=== PATIENT | male | born 1980 | race Caucasian/White ===

== ENCOUNTER → 2021-06-05 11:23 | Outpatient (BNVA) | payer MEDICAID, SELFPAY | PROVIDERS: Visit Provider Psychiatry & Neurology Psychiatry | DX: F25.9 Schizoaffective disorder, unspecified (principal) | CPT/HCPCS: 90792 ==

== ENCOUNTER 2021-06-13 17:29 | Inpatient (IN) | payer MEDICAID, SELFPAY ==
[2021-06-13 17:43] VITALS: BP 120/73; PULSE 115; RESP 20; TEMP 36.8; O2SAT 97; BMI 28.5
[2021-06-13 17:54] VITALS: O2SAT 96
--- NOTE | 2021-06-13 18:28 | ED_ITS ---
HPI - Psych General: Chief Complaint: Psychiatric Symptoms Stated Complaint: MHE: HEARING VOICES, OUT OF MEDS Time Seen by Provider: 06/13/21 18:09 History of Present Illness: HPI Narrative: This patient is brought to the emergency department by his [id number]. He states that he is here because he needs a mental health evaluation. This is also collaborated by his [id number]. She adds that he lives with them and she has been noting that he has been acting little bizarre lately talking to himself and other unusual behavior. She is concerned that he might act out and cause issues at home and therefore she has brought him to the emergency department. He has a longstanding history of mental illness and was previously treated in [place] and was doing well and then moved to [facility] and also continued to do well and then relocated here to live with his brother and [id number]. Not had any of his usual medications for at least 2 months. There is no history of alcohol consumption, street drug use etc. No recent medical illnesses, exposure to infectious disease etc. No recent trauma. No thoughts of self-harm. Associated symptoms: Reports auditory hallucinations; Deny homicidal ideation or suicidal ideation Review of Systems Const: Denies: fever(s) or chills Eyes: Denies: change in vision ENMT: Denies: throat pain, mouth pain or dental pain Card: Denies: chest pain or palpitations Resp: Denies: dyspnea or productive cough GI: Denies: abdominal pain, nausea or vomiting : Denies: flank pain, difficulty urinating or dysuria Musc: Denies: neck pain, back pain or extremity pain Skin/Breast: Denies: rash Neuro: Denies: headache(s), numbness in extremities, weakness in extremities, sensory changes or lack of coordination Psych: Reports: mood swings, sleeping less, difficulty concentrating and auditory hallucinations; Denies: suicidal ideation or homicidal ideation Endo: Denies: polyuria or polydipsia PFSH ED PFSH: Medical History Schizoaffective disorder Physical Exam Const: COMMON NORMALS: no acute distress and average body habitus GENERAL APPEARANCE: cooperative and well kempt HENMT: COMMON NORMALS: normocephalic, atraumatic, external ears normal, Normal external nose present and moist oral mucous membranes HEAD & SCALP: norm ocephalic and atraumatic NOSE: Normal external nose present EXTERNAL EAR: Yes external ears normal Eye: COMMON NORMALS: Equal, round and reactive pupils present, EOMs intact bilaterally and conjunctivae normal CONJUNCTIVA: Yes conjunctivae normal PUPIL: Yes Equal, round and reactive pupils present Neck/C-Spine: COMMON NORMALS: full ROM Chest: COMMONS NORMALS: normal inspection of the chest Resp: COMMON NORMALS: normal respiratory effort and No use of accessory muscles Cardio: COMMON NORMALS: regular rate and Peripheral pulses 2+ throughout RATE: regular rate PERIPHERAL PULSES: Peripheral pulses 2+ throughout GI: COMMON NORMALS: Normal to inspection, nondistended, normoactive bowel sounds present Back/Pelvis: COMMON NORMALS: thoracic and lumbar spine normal to inspection and thoraco-lumbar ROM normal Extremity: COMMON NORMALS: normal to inspection, full ROM and no calf tenderness GENERAL: No deformity Neuro: COMMON NORMALS: moves all extremities, no focal motor deficits and no sensory deficits noted SPEECH: speech normal Psych: APPEARANCE: Yes grossly normal and Yes well kempt ATTITUDE: Yes calm ACTIVITY/MOTOR BEHAVIOR: Yes psychomotor slowing MOOD & AFFECT: Yes Flat affect present THOUGHT PROCESS: disorganized and Loose association thought process present THOUGHT CONTENT: No Suicidality present, No Homicidality present and Yes Hallucination(s) present Course Consultations: Consultation #1: Discussed with attending psychiatrist Dr. Guzman. He agreed to admit the patient for further mental health evaluation and treatment. Vital Signs: Vital signs: Vital Signs Temperature 98.3 F 06/13/21 17:43 Pulse Rate 115 H 06/13/21 17:43 Respiratory Rate 20 H 06/13/21 17:43 Blood Pressure 120/73 06/13/21 17:43 Pulse Oximetry 96 06/13/21 17:54 MDM - Psych Lab Data: Labs: Lab Results 06/13/21 06/13/21 06/13/21 19:15 19:15 19:15 WBC 13.5 10^3/uL H 10 ^3/uL (4.0-10.0) RBC 4.45 10^6/uL 10^6 /uL (4.1-5.3) Hgb 12.9 g/dL g/dL (11.7-16.6) Hct 38.1 % L % (42.0-52.0) MCV 85.6 fl fl (80-94) MCH 29.0 pg pg (28.0-34.0) MCHC 33.9 g/dL g/dL (30.0-36.0) RDW 13.3 % % (12.1-15.1) Plt Count 265 10^3/cmm 10^3 /cmm (130-400) MPV 12.7 fL H fL (7.4-10.4) Neut % (Auto) 85.6 % % Lymph % (Auto) 8.6 % % Hood % (Auto) 4.5 % % Eos % (Auto) 0.6 % % Baso % (Auto) 0.5 % % Neut # (Auto) 11.54 10^3/uL H 1 0^3/uL (1.8-7.7) Lymph # (Auto) 1.2 10^3/uL 10^3/ uL (0.8-4.8) Hood # (Auto) 0.6 10^3/uL 10^3/ uL (0.2-0.9) Eos # (Auto) 0.1 10^3/uL 10^3/ uL (0.0-0.8) Baso # (Auto) 0.1 10^3/uL 10^3/ uL (0.0-0.1) Nucleated RBC % (a uto) 0 % % Nucleated RBCs # 0.0 /100WBC /100W BC Sodium 136 mmol/L mmol/L (136-145) Potassium 4.2 mmol/L mmol/L (3.5-5.1) Chloride 100 mmol/L mmol/L (98-107) Carbon Dioxide 24 mmol/L mmol/L (22-29) Anion Gap 16.2 (5-19) BUN 6 mg/dL mg/dL (6-20) Creatinine 0.6 mg/dL L mg/dL (0.7-1.2) GFR Calculation 149.2 mL/min H mL /min (90-130) Glucose 123 mg/dL H mg/dL (65-115) Calculated Osmolal ity 281 mOsm/kg L mOs m/kg (285-295) Calcium 9.6 mg/dL mg/dL (8.5-10.5) Total Bilirubin 0.4 mg/dL mg/dL (0.15-1.2) AST 25 U/L U/L (0-40) ALT 25 U/L U/L (0-41) Alkaline Phosphata se 124 IU/L IU/L (40-130) Total Protein 7.2 g/dL g/dL (6.6-8.7) Albumin 4.2 g/dL g/dL (3.5-5.2) Globulin 3.0 g/dL g/dL (1.3-4.6) Salicylates < 0.3 mg/dL L mg/ dL (3-10) Acetaminophen < 5.0 ug/mL L ug/ mL (10-30) SARS-CoV-2 Ag (Rap id) Negative (Negative) Discharge Plan Discharge Patient Disposition: Admitted As Inpatient Clinical Impression: Acute psychosis Schizoaffective disorder Qualifiers: Schizoaffective disorder type: unspecified Qualified Code(s): F25.9 - Schizoaffective disorder, unspecified Condition: Stable Coding Level of Care Code ED Insurance Claim Representative for Vinay Fwd Exam Comprehensive
[2021-06-13 19:55] LABS: Alanine Aminotransferase 25 U/L (0-41); Albumin Level 4.2 g/dL (3.5-5.2); Alkaline Phosphatase 124 IU/L (40-130); Anion Gap 16.2 (5-19); Aspartate Amino Transferase 25 U/L (0-40); Blood Urea Nitrogen 6 mg/dL (6-20); Calcium 9.6 mg/dL (8.5-10.5); Carbon Dioxide 24 mmol/L (22-29); Chloride 100 mmol/L (98-107); Glomerular Filtration Rate 149.2 mL/min (90-130); Glucose 123 mg/dL (65-115); Osmolality Calculated 281 mOsm/kg (285-295); Potassium 4.2 mmol/L (3.5-5.1); Sodium 136 mmol/L (136-145); Total Bilirubin 0.4 mg/dL (0.15-1.2); Total Protein 7.2 g/dL (6.6-8.7)
[2021-06-13 19:58] LABS: SARS Covid-2 Antigen Negative (Negative)
[2021-06-13 20:14] LABS: Acetaminophen < 5.0 ug/mL (10-30); Salicylate < 0.3 mg/dL (3-10)
[2021-06-13 21:03] LABS: Basophils # 0.1 10^3/uL (0.0-0.1); Basophils % 0.5 %; Eosinophils # 0.1 10^3/uL (0.0-0.8); Eosinophils % 0.6 %; Hematocrit 38.1 % (42.0-52.0); Hemoglobin 12.9 g/dL (11.7-16.6); Lymphocytes # 1.2 10^3/uL (0.8-4.8); Lymphocytes % 8.6 %; Mean Corpuscular HGB Conc 33.9 g/dL (30.0-36.0); Mean Corpuscular Volume 85.6 fl (80-94); Mean Platelet Volume 12.7 fL (7.4-10.4); Monocytes # 0.6 10^3/uL (0.2-0.9); Monocytes % 4.5 %; Neutrophils # 11.54 10^3/uL (1.8-7.7); Neutrophils % 85.6 %; Nucleated Red Blood Cells % 0 %; Platelet Count 265 10^3/cmm (130-400); Red Blood Count 4.45 10^6/uL (4.1-5.3); Red Cell Distribution Width 13.3 % (12.1-15.1); White Blood Count 13.5 10^3/uL (4.0-10.0)
[2021-06-13 22:00] VITALS: BP 117/67; BP 124/76; PULSE 77; PULSE 86; RESP 16; RESP 18; TEMP 36.7; O2SAT 96; O2SAT 97
[2021-06-13] MEDS: hyDROXYzine 25 mg Capsule 50 MG PO (23:32)
[2021-06-13] MEDS: OLANZapine 5 mg ODT PO (23:32)
[2021-06-13] MEDS: trazodone 50 mg Tablet PO (23:32)
[2021-06-14 06:00] VITALS: BP 108/56; PULSE 55; RESP 18; TEMP 36.9; O2SAT 96
[2021-06-14 14:00] VITALS: BP 109/65; PULSE 82; RESP 18; TEMP 36.2; O2SAT 96
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
[2021-06-14 20:28] VITALS: BP 127/82; PULSE 95; RESP 19; TEMP 36.8; O2SAT 94
[2021-06-14] MEDS: hyDROXYzine 25 mg Capsule 50 MG PO (21:18)
[2021-06-14] MEDS: risperiDONE 2 mg Tablet PO (21:18)
[2021-06-15 05:56] VITALS: BMI 28.5
[2021-06-15 06:00] VITALS: BP 110/73; PULSE 77; RESP 18; TEMP 36.6; O2SAT 97
[2021-06-15 14:00] VITALS: BP 116/63; PULSE 86; RESP 15; TEMP 36.8; O2SAT 96
--- NOTE | 2021-06-15 19:31 | PM.NPN ---
Subjective NPU Subjective: Interval history: Patient today reporting that he is tolerating the restarting of his medication without issue. He has been fairly isolative which he reports is kind how he is. He reports it is appreciative being able to get back on his medication and that he is feeling a little better. Mental Status Exam MSE Comments: This is an overweight versus obese white male in hospital scrubs with limited grooming and adequate eye contact. No abnormal movements except for mild psychomotor retardation. Cooperative with exam in no acute distress. Speech with decreased rate and volume. Mood described as a little better, affect congruent. Thought process organized. Thought content: Patient denied current suicidal or homicidal ideation, there are no delusions noted but paranoia was reported, he also endorsed having auditory hallucinations. Attention and concentration appeared intact and memory appeared reliable but none were formally tested. He is alert and oriented x3. Insight and judgment appear fair impulse control is limited. Vitals/I&O/Wt Last Vital Signs Temp 98.2 F 06/15/21 22:00 Pulse 91 06/15/21 22:00 Resp 19 H 06/15/21 22:00 BP 126/78 06/15/21 22:00 Pulse Ox 95 06/15/21 22:00 Weight last 48 hrs Weight 97.976 kg Data NPU : 06/13/21 19:15 06/13/21 19:15 A&P Additional A&P Information (1) Acute psychosis: (2) Schizoaffective disorder: Additional A&P Information This is a 40-year-old white male with a long history of psychotic illness who presents having been off of his medication for a few months and experiencing his baseline symptoms when unmedicated. Open to restarting medications at appropriate dose. 1. Continue current medication. May consider increasing Risperdal tomorrow and then ultimately letting the outpatient team take it from there. 2. Continue every 15 minute checks for safety. 3. Encourage individual, group and milieu therapies. 4. Encourage sober living treatment after discharge at the highest level of care to which he is willing to commit. Involuntary Hold Information 96 Hour Hold: 96 Hour Involuntary Admission: No Attestations NPU Medical Necessity Statement*: Inpatient hospitalization is medically necessary and the clinically appropriate intervention at this time. We will monitor medications and make changes as indicated. Patient will be in the hospital for over two midnights. Likely length of stay 2-4 days. Coding Level of Care Code Acute Product Support Analyst for Vinay Salinas
[2021-06-15] MEDS: hyDROXYzine 25 mg Capsule 50 MG PO (21:21)
[2021-06-15] MEDS: risperiDONE 2 mg Tablet PO (21:21)
[2021-06-15 22:00] VITALS: BP 126/78; PULSE 91; RESP 19; TEMP 36.8; O2SAT 95
--- NOTE | 2021-06-16 01:32 | PC.NURSE ---
PM Assessment At beginning of shift, pt is in his room in the bed with the covers pulled up over his head. Pt states he is having AH that are command, telling him to Kill himself . Pt requested medication for anxiety and sleep tonight. Med nurse notified of pt request. However, pt was asleep before medication was administered. He is still sleeping soundly. Will continue to observe the patient throughout the remainder of shift.
[2021-06-16 06:00] VITALS: BP 130/63; PULSE 102; RESP 20; TEMP 36; O2SAT 96
--- NOTE | 2021-06-16 11:01 | NPU.GN ---
[facility] Group Topic:Seamus Chanel General Mood of Group: Aris did not attend group therapy today.
[2021-06-16 14:00] VITALS: BP 118/74; PULSE 108; RESP 16; TEMP 36.6; O2SAT 96
--- NOTE | 2021-06-16 16:33 | P.PN_ITS ---
Subjective NPU Subjective: Interval history: Patient presents today focused on making sure that when he is discharged he will have access to medication is that is likely the prominent special events driver in this admission. He reports that he tolerated the Risperdal fine last night. We discussed the risk benefits and alternatives of increasing the dose to 4 mg p.o. nightly and he understood and agreed to proceed as is documented in this note. He reports frustration that he has to be here but knowledge that it is necessary. His brother reported that he was going to be able to have a place to go home to and we discussed the possibility of discharge in the next 48 hours. Mental Status Exam MSE Comments: This is an overweight versus obese white male in hospital scrubs with limited grooming and adequate eye contact. No abnormal movements except for mild psychomotor retardation. Cooperative with exam in no acute distress. Speech with decreased rate and volume. Mood described as a little better, affect c ongruent. Thought process organized. Thought content: Patient denied current suicidal or homicidal ideation, there are no delusions noted but paranoia was reported, he also endorsed having auditory hallucinations. Attention and concentration appeared intact and memory appeared reliable but none were formally tested. He is alert and oriented x3. Insight and judgment appear fair impulse control is limited. Vitals/I&O/Wt Last Vital Signs Temp 97.9 F 06/16/21 14:00 Pulse 108 H 06/16/21 14:00 Resp 16 06/16/21 14:00 BP 118/74 06/16/21 14:00 Pulse Ox 96 06/16/21 14:00 Weight last 48 hrs Weight 97.976 kg Data NPU : 06/13/21 19:15 06/13/21 19:15 A&P Additional A&P Information (1) Acute psychosis: (2) Schizoaffective disorder: Additional A&P Information This is a 40-year-old white male with a long history of psychotic illness who presents having been off of his medication for a few months and experiencing his baseline symptoms when unmedicated. Open to restarting medications at appropriate dose. 1. Continue current medication. Increase Risperdal to 4 mg p.o. nightly. 2. Continue every 15 minute checks for safety. 3. Encourage individual, group and milieu therapies. 4. Encourage sober living treatment after discharge at the highest level of care to which he is willing to commit. Involuntary Hold Information 96 Hour Hold: 96 Hour Involuntary Admission: No Attestations NPU Medical Necessity Statement*: Inpatient hospitalization is medically necessary and the clinically appropriate intervention at this time. We will monitor medications and make changes as indicated. Likely length of stay 1-3 days. Coding Level of Care Code Acute Pharmacy Technician Infusion for Vinay Salinas
[2021-06-16 20:04] VITALS: BP 138/83; PULSE 108; RESP 22; TEMP 36.8; O2SAT 96
[2021-06-16] MEDS: risperiDONE 2 mg Tablet 4 MG PO (20:29)
[2021-06-17] MEDS: OLANZapine 5 mg ODT PO ×3 (00:27→21:01)
--- NOTE | 2021-06-17 00:30 | PC.NURSE ---
pt came to nurses desk with notable visual and auditory hallucinations, with increasing agitation, Zyprexa 5mg po given for hallucinations.
--- NOTE | 2021-06-17 02:00 | PC.NURSE ---
pt stated voices aren't as prominent at this time, and he was doing much better. pt is dayroom watching tv.
[2021-06-17 06:00] VITALS: BP 113/78; PULSE 101; RESP 20; TEMP 36.8; O2SAT 98
--- NOTE | 2021-06-17 08:53 | PC.NURSE ---
PATIENT REQUESTED PRN MEDICATION DUE TO INCREASED AUDITORY COMMAND HALLUCINATIONS. GAVE 5MG PO ZYPREXA.
--- NOTE | 2021-06-17 12:13 | NPU.GN ---
[facility] Unit Group Topic:Asya General Mood of Group: Aris did not attend group therapy today.
[2021-06-17 14:00] VITALS: BP 118/75; PULSE 100; RESP 20; TEMP 36.4; O2SAT 96
--- NOTE | 2021-06-17 15:51 | P.PN_ITS ---
Subjective NPU Subjective: Interval history: Patient presents today reporting that he is feeling better. Feeling less internally preoccupied. Less reports from staff that he is talking to himself. We discussed the possibility of increasing his Risperdal back to the previous dose tomorrow. We also discussed the possibility of discharge in the next 48 hours. Mental Status Exam MSE Comments: This is an overweight versus obese white male in hospital scrubs with limited grooming and adequate eye contact. No abnormal movements except for mild psychomotor retardation. Cooperative with exam in no acute distress. Speech with decreased rate and volume. Mood described as better, affect congruent. Thought process organized. Thought content: Patient denied current suicidal or homicidal ideation, there are no delusions noted but paranoia was reported, he also endorsed having auditory hallucinations. Attention and concentration appeared intact and memory appeared reliable but none were formally tested. He is alert and oriented x3. Insight and judgment appear fair, impulse control is limited. Vitals/I&O/Wt Last Vital Signs Temp 97.6 F 06/17/21 14:00 Pulse 100 06/17/21 14:00 Resp 20 H 06/17/21 14:00 BP 118/75 06/17/21 14:00 Pulse Ox 96 06/17/21 14:00 Data NPU : 06/13/21 19:15 06/13/21 19:15 A&P Additional A&P Information (1) Acute psychosis: (2) Schizoaffective disorder: Additional A&P Information This is a 40-year-old white male with a long history of psychotic illness who presents having been off of his medication for a few months and experiencing his baseline symptoms when unmedicated. Open to restarting medications at appropriate dose. 1. Continue current medication. Increase Risperdal to 4 mg p.o. nightly. 2. Continue every 15 minute checks for safety. 3. Encourage individual, group and milieu therapies. 4. Encourage sober living treatment after discharge at the highest level of care to which he is willing to commit. Involuntary Hold Information 96 Hour Hold: 96 Hour Involuntary Admission: No Attestations NPU Medical Necessity Statement*: Inpatient hospitalization is medically necessary and the clinically appropriate intervention at this time. We will monitor medications and make changes as indicated. Likely length of stay 1-2 days. Coding Level of Care Code Acute Recreation Superintendent for Vinay Salinas
[2021-06-17 20:41] VITALS: BP 112/68; PULSE 106; RESP 20; TEMP 36.4; O2SAT 97
[2021-06-17] MEDS: risperiDONE 2 mg Tablet 4 MG PO (21:01)
[2021-06-17] MEDS: hyDROXYzine 25 mg Capsule 50 MG PO (22:48)
[2021-06-17] MEDS: trazodone 50 mg Tablet PO (22:48)
[2021-06-18 06:00] VITALS: BP 117/69; PULSE 70; RESP 18; TEMP 36.7; O2SAT 96
--- NOTE | 2021-06-18 12:01 | P.PN_ITS ---
Subjective NPU Subjective: Interval history: Patient presents today reporting that he is hopeful that he can get home sooner rather than later. He has tolerated the titration of his Risperdal. We discussed the risk benefits and alternatives of increasing his medication to the previous functional dose of 6 mg p.o. nightly tomorrow such that he would start it tomorrow night and he understood and agreed proceed as documented in his note. We discussed Dr. Kathleen coming tomorrow and him having the opportunity to take a look and see if he seems prepared for discharge tomorrow or if his reports back to day or so. He continues to be cooperative with that plan. Mental Status Exam MSE Comments: This is an overweight versus obese white male in hospital scrubs with limited grooming and adequate eye contact. No abnormal movements except for mild psychomotor retardation. Cooperative with exam in no acute distress. Speech with decreased rate and volume. Mood described as okay, affect congruent. T hought process organized. Thought content: Patient denied current suicidal or homicidal ideation, there are no delusions noted but paranoia was reported, he also endorsed having auditory hallucinations. Attention and concentration appeared intact and memory appeared reliable but none were formally tested. He is alert and oriented x3. Insight and judgment appear fair, impulse control is limited. Vitals/I&O/Wt Last Vital Signs Temp 98.1 F 06/18/21 06:00 Pulse 70 06/18/21 06:00 Resp 18 06/18/21 06:00 BP 117/69 06/18/21 06:00 Pulse Ox 96 06/18/21 06:00 Data NPU : 06/13/21 19:15 06/13/21 19:15 A&P Additional A&P Information (1) Acute psychosis: (2) Schizoaffective disorder: Additional A&P Information This is a 40-year-old white male with a long history of psychotic illness who presents having been off of his medication for a few months and experiencing his baseline symptoms when unmedicated. Open to restarting medications at appropriate dose. 1. Continue current medication. Increase Risperdal to 6 mg p.o. nightly tomorrow. 2. Continue every 15 minute checks for safety. 3. Encourage individual, group and milieu therapies. 4. Encourage sober living treatment after discharge at the highest level of care to which he is willing to commit. Involuntary Hold Information 96 Hour Hold: 96 Hour Involuntary Admission: No Attestations NPU Medical Necessity Statement*: Inpatient hospitalization is medically necessary and the clinically appropriate intervention at this time. We will monitor medications and make changes as indicated. Likely length of stay 1-2 days. Coding Level of Care Code Acute Outside Event Sales Specialist for Vinay Salinas
--- NOTE | 2021-06-18 12:06 | NPU.GN ---
[facility] Topic:Coping Skills Bingo/ Cross word puzzle General Mood of Group: Aris did not attend or participate in group therapy this morning. He wanted to sleep.
[2021-06-18 14:00] VITALS: BP 106/60; PULSE 91; RESP 18; TEMP 37; O2SAT 95
[2021-06-18 19:55] VITALS: BP 122/73; PULSE 84; RESP 20; TEMP 36.8; O2SAT 97
[2021-06-18] MEDS: risperiDONE 2 mg Tablet 4 MG PO (21:42)
[2021-06-18] MEDS: hyDROXYzine 25 mg Capsule 50 MG PO (21:52)
[2021-06-19 06:00] VITALS: BP 105/69; PULSE 84; RESP 18; TEMP 36.7; O2SAT 96
--- NOTE | 2021-06-19 12:45 | NPU.GN ---
[facility] Topic:Coping Kills Checklist General Mood of Group: Aris did not attend group today he wanted to sleep.
[2021-06-19 14:00] VITALS: BP 127/52; PULSE 95; RESP 18; TEMP 36.8; O2SAT 97
--- NOTE | 2021-06-19 16:12 | PM.NPN ---
Subjective NPU Subjective: Interval history: The patient says he is depressed today and he is still hearing voices which bother him. He says that his suicidal ideation is 50/50. He is worried about his future and feeling helpless and hopeless. His attention is stuck on the uncertainty about where he is going. He does feel that if the plan were clearer, he might feel better. No side effects from Risperdal. We discussed discharge tomorrow if plans are in place and he is feeling better emotionally. Mental Status Exam MSE Comments: This is an overweight versus obese white male in hospital scrubs with limited grooming and adequate eye contact. No abnormal movements. No psychomotor agitation or retardation. Cooperative with exam. In no acute distress. Speech was at a normal volume, but he does stutter. Mood described as worried, affect congruent. Thought process organized but concrete. Thought content: He has auditory hallucinations and suicidal ideation. Patient denied current homicidal ideation and visual hallucinations. There are no delusions noted. Attention and concentration appeared intact and memory appeared reliable but none were formally tested. He is alert and oriented x3. Insight and judgment appear fair, impulse control is limited. Vitals/I&O/Wt Last Vital Signs Temp 98.2 F 06/19/21 14:00 Pulse 95 06/19/21 14:00 Resp 18 06/19/21 14:00 BP 127/52 06/19/21 14:00 Pulse Ox 97 06/19/21 14:00 06/19/21 06/19/21 06/19/21 06:59 14:59 22:59 Intake Total 240 / 240 Balance 240 / 240 Data NPU : 06/13/21 19:15 06/13/21 19:15 A&P Assessment and plan (1) Acute psychosis: Status: Acute (2) Schizoaffective disorder: Status: Acute Qualifiers: Schizoaffective disorder type: unspecified Qualified Code(s): F25.9 - Schizoaffective disorder, unspecified Additional A&P Information This is a 40-year-old white male with a long history of psychotic illness who presents having been off of his medication for a few months and experiencing his baseline symptoms when unmedicated. Open to restarting medications at appropriate dose. 1. Continue current medication. Risperdal is now 6 mg nightly. No side effects. 2. Continue every 15 minute checks for safety. 3. Encourage individual, group and milieu therapies. 4. Encourage sober living treatment after discharge at the highest level of care to which he is willing to commit. Involuntary Hold Information 96 Hour Hold: 96 Hour Involuntary Admission: No Attestations NPU Medical Necessity Statement*: Inpatient hospitalization is medically necessary and the clinically appropriate intervention at this time. We will monitor medications and make changes as indicated. Likely length of stay 1-2 days. Coding Level of Care Code Acute Weed Eradicator for Vinay Salinas Diagnoses Acute psychosis F23 Schizoaffective disorder F25.9 Schizoaffective disorder type: unspecified
[2021-06-19 20:05] VITALS: BP 117/69; PULSE 106; RESP 18; TEMP 36.7; O2SAT 99
[2021-06-19] MEDS: risperiDONE 2 mg Tablet 6 MG PO (20:28)
[2021-06-19] MEDS: hyDROXYzine 25 mg Capsule 50 MG PO (20:28)
--- NOTE | 2021-06-20 04:46 | PC.NURSE ---
EVENING- Patient cooperative with care. Appears tense. Denies any SI/HI. Does endorse continued AVH. Reports seeing shadows and shadow people. States that AH are less but appears to be distracted by them frequently. Responses to questions are appropriate in topic but often delayed. Remains withdrawn to room most of evening. NIGHT- In bed resting with eyes closed throughout night. No complaints voiced. No distress noted. PRNs- Vistaril at 2027 to good effect.
[2021-06-20 05:57] VITALS: RESP 15
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
[2021-06-20 14:00] VITALS: BP 109/72; PULSE 56; RESP 17; TEMP 36.9; O2SAT 97
[2021-06-20 14:56] VITALS: BP 117/69; PULSE 106; RESP 15; TEMP 36.7; O2SAT 99
[2021-06-20 14:59] VITALS: BP 117/69; PULSE 106; RESP 15; TEMP 36.7; O2SAT 99
--- NOTE | 2021-06-20 16:07 | PC.NURSE ---
Patient was discharged at 1607 to family member with all belongings. Scripts called in to [facility] pharmacy.
== END 2021-06-20 16:00 | disposition home or self-care (01) | DRG 885 ==
LOC: ER 21:35 → NP 06-14 21:53
PROVIDERS: Admitting Provider Psychiatry & Neurology Psychiatry; Emergency Provider Emergency Medicine; Visit Provider Psychiatry & Neurology Child & Adolescent Psychiatry
DX: F25.9 Schizoaffective disorder, unspecified (principal); Z91.14 Patient's other noncompliance with medication regimen
CPT/HCPCS: 80053; 80307; 85025; 87426; 97150; 97165; 99285

== ENCOUNTER 2021-07-05 15:54 | Emergency (ER) | payer MEDICAID, SELFPAY ==
[2021-07-05 16:02] VITALS: BP 117/66; PULSE 78; RESP 16; TEMP 36.8; O2SAT 97
--- NOTE | 2021-07-05 16:34 | W.ED.GENADLT ---
HPI - General Adult General: Chief complaint: General Medical Stated complaint: Need Medication Time Seen by Provider: 07/05/21 16:11 History of Present Illness: HPI narrative: Patient is a 40-year-old male comes to the ED for medication refill. Patient takes risperidone at night and just ran out of his prescription last evening. [facility] is closed over the weekend so is not able to get a hold of them. He does have an appointment with them on July 10, so he just needs medication refill until then. He states he usually sees Dr. Alejandra at [facility] [place]. He denies any SI, HI, auditory or visual hallucinations. He has no other complaints or symptoms. He would just like to get medication refill to get him to his appointment on July 10. Associated symptoms: Deny chest pain, dyspnea, headache(s), nausea, rash, palpitations or vomiting Review of Systems Const: Denies: fever(s), chills or fatigue Eyes: Denies: change in vision or eye discomfort ENMT: Denies: throat pain, odynophagia, nasal discharge or nasal congestion Card: Denies: chest pain, palpitations, edema, swelling of feet/ankles, dyspnea on exertion or orthopnea Resp: Denies: dyspnea, productive cough or non-productive cough GI: Denies: abdominal pain, nausea, vomiting, diarrhea, constipation or hematochezia : Denies: flank pain, difficulty urinating, dysuria or hematuria Musc: Denies: neck pain, back pain or extremity swelling Skin/Breast: Denies: rash or new lesions Neuro: Denies: headache(s), numbness in extremities or weakness in extremities Psych: Denies: anxiety, depression, visual hallucinations, auditory hallucinations, suicidal ideation or homicidal ideation [facility] ED PFSH: Medical History Psychiatric care Schizoaffective disorder Physical Exam Const: COMMON NORMALS: no acute distress, patient oriented x3, healthy appearing and alert GENERAL APPEARANCE: cooperative and comfortable HENMT: COMMON NORMALS: normocephalic HEAD & SCALP: normocephalic MOUTH: Normal oral and palatal mucosa present THROAT: posterior oropharynx normal and uvula midline Neck/C-Spine: COMMON NORMALS: supple GENERAL: Yes normal visual inspection Resp: COMMON NORMALS: normal respiratory effort, No retractions, No use of accessory muscles and clear to auscultation bilaterally AUSCULTATION: clear to auscultation bilaterally Cardio: COMMON NORMALS: regular rate, regular rhythm, S1 normal heart sound present, S2 normal heart sound present, No gallops present (Cardio), No clicks present (Cardio), No murmurs present (Cardio) and Peripheral pulses 2+ throughout RATE: regular rate RHYTHM: regular rhythm HEART SOUNDS: S1 normal heart sound present and S2 normal heart sound present PERIPHERAL PULSES: Peripheral pulses 2+ throughout GI: COMMON NORMALS: Normal to inspection, nondistended, normoactive bowel sounds present, Soft to palpation, non-tender and no masses PALPATION: Yes Soft to palpation : COMMON NORMALS: Yes no CVA tenderness BLADDER/KIDNEY EXAM: Yes no CVA tenderness Back/Pelvis: COMMON NORMALS: no CVA tenderness Extremity: COMMON NORMALS: normal to inspection Neuro: COMMON NORMALS: patient oriented x3 and moves all extremities SENSORIUM/ORIENTATION: Yes alert Psych: COMMON NORMALS: mental status grossly normal, Normal thought process present, cooperative, normal affect, speech normal, activity/motor behavior normal, denies hallucinations, denies homicidal ideation and denies suicidal ideation SPEECH: Yes normal speech THOUGHT PROCESS: Normal thought process present Skin: GENERAL SKIN EXAM: dry skin Course Vital Signs: Vital signs: Vital Signs Temperature 98.2 F 07/05/21 16:02 Pulse Rate 78 07/05/21 16:02 Respiratory Rate 16 07/05/21 16:02 Blood Pressure 117/66 07/05/21 16:02 Pulse Oximetry 97 07/05/21 16:02 MDM - General Adult MDM Narrative: Medical decision making narrative: Patient is a 40-year-old male comes to the ED for medication refill. Patient has out of his risperidone and he has an appointment with [facility] on July 10. Reviewing patient's chart it does look like he was given about a 15-day supply for risperidone on June 20, so him being out at this point does make sense. He denies any SI, HI, auditory or visual hallucinations. Patient was discharged home with a prescription for risperidone for the next 5 days which should get him to his behavioral health appointment on July 10 and he can get a new prescription at that time. Patient understood and agree with plan. Discharge Plan Discharge Patient Disposition: Home Clinical Impression: Encounter for medication refill Condition: Stable Prescriptions: New risperidone 3 mg tablet 6 mg PO DAILY 5 Days Qty: 10 RF: 0 No Action hydroxyzine pamoate 50 mg capsule 50 mg PO .at Bedtime 30 Days Qty: 30 RF: 0 risperidone 3 mg tablet 6 mg PO .at bedtime 30 Days Qty: 60 RF: 0 Discharge Orders: Discharge ED (Routine); Ordered 07/05/21 Ordered By: Trevor Mccarthy Discharge Diet: Regular Discharge Activity: Resume usual activity Patient Instructions: Risperidone (By mouth) Activity Restrictions/Additional Instructions: Follow-up with [facility] at your next scheduled appointment on July 10. Take medications as prescribed. Return to the ER or your medical provider if condition worsens. Please read and understand discharge instructions. Thank you for choosing [facility] for your healthcare needs today. Please realize this is an emergency room and that we are providing you with a medical screening exam and this may not be complete and all inclusive of all the testing and or work up that you may need to determine your ailment or severity of your illness. It is very important that you follow up as instructed or that you return to the Emergency Department should you have concerns or if your condition changes or worsens in any way. Coding Level of Care Code ED Senior National Account Manager for Vinay Salinas Exam Comprehensive
== END 2021-07-05 16:51 | disposition home or self-care (01) ==
PROVIDERS: Emergency Provider Physician Assistant
DX: Z76.0 Encounter for issue of repeat prescription (principal)
CPT/HCPCS: 99281

== ENCOUNTER → 2021-07-10 11:30 | Outpatient (BNVA) | payer MEDICAID, SELFPAY | PROVIDERS: Visit Provider Psychiatry & Neurology Psychiatry | DX: F25.9 Schizoaffective disorder, unspecified (principal) | CPT/HCPCS: 90792 ==

== ENCOUNTER 2021-08-05 15:41 | Emergency (ER) | payer MEDICAID, SELFPAY ==
[2021-08-05 16:38] VITALS: BP 121/78; PULSE 72; RESP 18; TEMP 36.4; O2SAT 98; BMI 28.8
--- NOTE | 2021-08-05 17:08 | XRR_ITS ---
PROCEDURE INFORMATION: Exam: XR Left Elbow Exam date and time: 08/05/2021 5:08 PM Age: 41 years old Clinical indication: Pain; Elbow; Left TECHNIQUE: Imaging protocol: XR Left elbow. Views: 3 or more views. COMPARISON: No relevant prior studies available. FINDINGS: Bones/joints: Normal. Soft tissues: Normal. XR/XR elbow LT min 3V* [id number] IMPRESSION: No acute findings.
--- NOTE | 2021-08-05 17:08 | ED_ITS ---
HPI - Extremity Problem General: Chief complaint: Extremity Injury, Upper Stated complaint: L ARM INJURY, ELBOW PAIN Time Seen by Provider: 08/05/21 16:40 History of Present Illness: HPI Narrative: 41-year-old male patient comes in with pain and discomfort to the left medial elbow. Patient reports pain since the day after Thanksgiving. Patient has had persistent discomfort. Patient is been using icy hot to the area but continues to have pain. Patient is concerned there may be something wrong with his elbow joint. Review of Systems General: Reports: 10 or more systems reviewed and unremarkable except in HPI and below Musc: Reports: other (Left elbow pain) [facility] ED PFSH: Medical History Psychiatric care Schizoaffective disorder Physical Exam Const: COMMON NORMALS: no acute distress and patient oriented x3 GENERAL APPEARANCE: cooperative HENMT: COMMON NORMALS: normocephalic HEAD & SCALP: normal to inspection and normocephalic Eye: GENERAL EYE: appearance normal, both eyes and all related structures Neck/C-Spine: COMMON NORMALS: full ROM Chest: COMMONS NORMALS: normal inspection of the chest Resp: COMMON NORMALS: normal respiratory effort EFFORT & INSPECTION: Yes able to speak in complete sentences Cardio: COMMON NORMALS: regular rate and regular rhythm RATE: regular rate RHYTHM: regular rhythm GI: COMMON NORMALS: non-tender Extremity: NARRATIVE EXTREMITY EXAM: Tenderness to the left medial epicondyles of the left elbow. Patient has decreased range of motion due to pain. Distal pulses and sensation are intact. Neuro: COMMON NORMALS: patient oriented x3 and moves all extremities Psych: COMMON NORMALS: mental status grossly normal and cooperative Skin: COMMON NORMALS: no rashes or lesions noted GENERAL SKIN EXAM: no rashes or lesions noted Course Vital Signs: Vital signs: Vital Signs Temperature 97.6 F 08/05/21 16:38 Pulse Rate 72 08/05/21 16:38 Respiratory Rate 18 08/05/21 16:38 Blood Pressure 121/78 08/05/21 16:38 Pulse Oximetry 98 08/05/21 16:38 MDM - Extremity (Nontraumatic) MDM Narrative: Medical decision making narrative: Patient comes in for concerns of pain and discomfort to the left elbow. On exam we note tenderness over the medial aspect of the epicondyle. No redness or inflammation or induration is noted. Patient has decreased range of motion due to pain. Distal pulses and sensations are intact. Differential diagnosis includes but not limited to medial epicondylitis, tendinitis of the elbow, sprain. X-ray notes no fractures or dislocations. Believe the patient probably has a tendinitis in the elbow. We will go ahead and give him a dose of dexamethasone IM. And then continue diclofenac 75 mg twice a day for 10 days. Encourage patient to use elbow as tolerated. And follow-up with primary care for further instruction and evaluation. Discharge Plan Discharge Patient Disposition: Home Clinical Impression: Left elbow tendinitis Condition: Stable Prescriptions: New diclofenac sodium 75 mg tablet,delayed release (DR/EC) 75 mg PO BID Qty: 20 RF: 0 No Action risperidone 3 mg tablet 6 mg PO .at bedtime 90 Days Qty: 180 RF: 3 hydroxyzine pamoate 50 mg capsule 50 mg PO .at Bedtime 90 Days Qty: 90 RF: 3 Discharge Orders: Discharge ED (Routine); Ordered 08/05/21 Ordered By: Heraclio Pandya Discharge Diet: Usual diet Discharge Activity: Increase activity as tolerated Patient Instructions: Tendinitis (ED) Activity Restrictions/Additional Instructions: Activity as tolerated. Use diclofenac twice a day as directed to help with pain and inflammation. You may also use Tylenol, acetaminophen, for further pain relief. Continue with ice packs or muscle rub to help with pain. Follow-up with primary care in 3 days for recheck. Return to the ER for new concerns. Coding Level of Care Code ED [place] Worker for Vinay Fwmilton Exam Comprehensive
[2021-08-05] MEDS: dexamethasone 10 mg/mL INJ IM (17:54)
== END 2021-08-05 18:02 | disposition home or self-care (01) ==
PROVIDERS: Emergency Provider Nurse Practitioner Family
DX: M77.8 Other enthesopathies, not elsewhere classified (principal)
CPT/HCPCS: 73080; 96372; 99283; J1100

== ENCOUNTER → 2021-09-11 11:15 | Outpatient (BNVA) | payer MEDICAID, SELFPAY | PROVIDERS: Visit Provider Psychiatry & Neurology Psychiatry | DX: F25.9 Schizoaffective disorder, unspecified (principal) | CPT/HCPCS: 99214 ==

== ENCOUNTER → 2022-01-08 11:08 | Outpatient (BNVA) | payer MEDICAID, SELFPAY | PROVIDERS: Visit Provider Psychiatry & Neurology Psychiatry | DX: F25.9 Schizoaffective disorder, unspecified (principal); Z79.899 Other long term (current) drug therapy | CPT/HCPCS: 99214 ==

== ENCOUNTER 2022-01-08 12:11 | Outpatient (CLI) | payer MEDICAID, SELFPAY | END 2022-01-08 12:12 | disposition home or self-care (01) | LOC: LAB 12:12 | PROVIDERS: Visit Provider Psychiatry & Neurology Psychiatry | DX: Z79.899 Other long term (current) drug therapy (principal) | CPT/HCPCS: 36415; 80053; 80061; 83036; 84443; 85025; 99214 ==

== ENCOUNTER 2022-01-28 08:58 | Emergency (ER) | payer MEDICAID, SELFPAY ==
--- NOTE | 2022-01-28 09:03 | W.ED.PSYCHS ---
HPI - Psych General: Chief Complaint: Psychiatric Symptoms Stated Complaint: hearing voices Time Seen by Provider: 01/28/22 09:01 Source: patient Mode of arrival: ambulatory Limitations: no limitations History of Present Illness: 41-year-old male with a history of schizophrenia presents with complaints of auditory hallucinations for the last 4 to 6 weeks. He is taking his medications as prescribed he takes Risperdal 6 mg daily states despite states the voices are becoming louder and more frequent and more obnoxious. However he denies any suicidal or homicidal ideations. He states the voices are telling him to go back to [place] where he recently moved from. In talking to the patient he is well behaved polite he does not act out is not aggressive in any manner whatsoever he is very [id number] about his symptoms and forthright. He denies any other illness or recent change in his health status or injuries. He states at times in the past when the voices are becoming more severe he has acted out but has not had that issue recently. MD complaint: other (Auditory hallucinations) Onset (ago): week(s) (4-6) Duration: intermittent and getting worse History of same: Yes Relieving factors: none Exacerbating factors: none Associated psychiatric symptoms: none Associated symptoms: Reports auditory hallucinations Treatments prior to arrival: none Review of Systems Const: Denies: fever(s), chills, body aches, change in appetite, fatigue or malaise ENMT: Denies: throat pain, ear or mastoid pain, nasal discharge or nasal congestion Card: Denies: chest pain, edema, dyspnea on exertion or orthopnea Resp: Denies: dyspnea, productive cough or non-productive cough GI: Denies: abdominal pain, nausea, vomiting, diarrhea or constipation : Denies: flank pain, dysuria, urinary frequency or urinary urgency Skin/Breast: Denies: rash or pruritus Psych: Reports: auditory hallucinations PFS ED PFSH: Medical History Psychiatric care Schizoaffective disorder Social History Smoking and tobacco status: never smoked Alcohol intake: never Physical Exam Const: COMMON NORMALS: average body habitus, patient oriented x3 and alert GENERAL APPEARANCE: cooperative, comfortable, well kempt and well developed NUTRITIONAL APPEARANCE: obese ORIENTATION/CONSCIOUSNESS: Yes awake, Yes oriented to person and Yes oriented to place HENMT: COMMON NORMALS: normocephalic and atraumatic HEAD & SCALP: normocephalic and atraumatic Neck/C-Spine: COMMON NORMALS: no meningeal signs Resp: COMMON NORMALS: normal respiratory effort, No retractions, No use of accessory muscles and clear to auscultation bilaterally AUSCULTATION: clear to auscultation bilaterally Cardio: COMMON NORMALS: regular rate and regular rhythm RATE: regular rate RHYTHM: regular rhythm HEART SOUNDS: no murmurs GI: COMMON NORMALS: Normal to inspection, nondistended, normoactive bowel sounds present, Soft to palpation and No hepatosplenomegaly present PALPATION: Yes Soft to palpation and Yes No hepatosplenomegaly present : COMMON NORMALS: Yes no CVA tenderness BLADDER/KIDNEY EXAM: Yes no CVA tenderness Back/Pelvis: COMMON NORMALS: no CVA tenderness LUMBAR SPINE/LOWER BACK: Yes normal to inspection Extremity: COMMON NORMALS: no clubbing, cyanosis or edema, no calf tenderness and no pedal edema Neuro: COMMON NORMALS: patient oriented x3 SENSORIUM/ORIENTATION: Yes alert, Yes oriented to person and Yes oriented to place MENINGEAL SIGNS: Yes no meningeal signs Psych: APPEARANCE: Yes well kempt Skin: COMMON NORMALS: no rashes or lesions noted and turgor normal GENERAL SKIN EXAM: no rashes or lesions noted and turgor normal Course Vital Signs: Vital signs: Vital Signs Temperature 98.4 F 01/28/22 09:14 Pulse Rate 107 H 01/28/22 09:14 Respiratory Rate 18 01/28/22 09:14 Blood Pressure 114/76 01/28/22 09:14 Pulse Oximetry 95 01/28/22 09:14 MDM - Psych Medical Decision Making Discussion with the patient as well as with the patient's primary psychiatrist. I will take the patient really benefit from hospitalization at this point he is well aware of his auditory hallucinations have been ongoing for some time and is not acutely reacting to any of them he has no suicidal or homicidal ideation. Discussing with his primary care psychiatrist they recommended increasing his risperidone to 3 mg in the morning and 6 mg at night and follow-up later this week secured an appointment with [facility] for follow-up before the patient left reviewed with the patient he is comfortable this plan he can return if he has any worsening or changes symptoms. Medical Records I reviewed the patient's medical records. Lab Data I reviewed the patient's lab results. Laboratory Results Urine Color Yellow (Yellow) 01/28/22 09:56 Urine Appearance Clear (CLEAR) 01/28/22 09:56 Urine pH 7 (5-7) 01/28/22 09:56 Ur Specific [place] 1.005 (1.005-1.030) 01/28/22 09:56 Urine Protein Neg (Negative) 01/28/22 09:56 Urine Glucose (UA) Norm (Normal) 01/28/22 09:56 Urine Ketones Negative (Negative) 01/28/22 09:56 Urine Blood Neg (Negative) 01/28/22 09:56 Urine Nitrate Negative (Negative) 01/28/22 09:56 Urine Bilirubin Neg (Negative) 01/28/22 09:56 Urine Urobilinogen Norm mg/dL (Negative) 01/28/22 09:56 Ur Leukocyte Esterase Negative (Negative) 01/28/22 09:56 Discharge Plan Discharge Patient Disposition: Home Clinical Impression: Schizoaffective disorder Condition: Stable Prescriptions: Changed risperidone 3 mg tablet 6 mg PO BEDTIME Qty: 90 0RF Rx Instructions: 1 tablet in the a.m., 2 tablets at bedtime No Action hydroxyzine pamoate 50 mg capsule 50 mg PO BEDTIME 0RF Discharge Orders: Discharge ED (Routine); Ordered 01/28/22 Ordered By: Bart Elias Discharge Diet: Usual diet Discharge Activity: Resume usual activity Patient Instructions: Opioid Safety Activity Restrictions/Additional Instructions: Follow-up with your psychiatrist within the next week. Return if you have further problems. Coding Level of Care Code ED [employer] Insulator for Vinay Fwd Exam Comprehensive
[2022-01-28 09:14] VITALS: BP 114/76; PULSE 107; RESP 18; TEMP 36.9; O2SAT 95; BMI 26.9
[2022-01-28 10:13] LABS: Add Urine Microscopic? NO; Charge for UA Resulting for Rev
[2022-01-28 10:22] LABS: Bilirubin Urine Neg (Negative); Blood Urine Neg (Negative); Glucose Urine UA Norm (Normal); Ketones Urine Negative (Negative); Leukocyte Esterase Urine Negative (Negative); Nitrate Urine Negative (Negative); Protein Urine Neg (Negative); Specific Gravity, Urine 1.005 (1.005-1.030); Urine Appearance Clear (CLEAR); Urine Color Yellow (Yellow); Urobilinogen Urine Norm (Negative); pH Urine 7 (5-7)
--- NOTE | 2022-01-28 10:48 | DCPLANNER ---
Addendum entered by Romi Walls 04/21/22 17:09: Patient had a follwo up appointment scheduled with [facility] - patient did attend appointment. Original Note: plumbing manager was asked to schedule a follow up appointment for patient with [facility] Medication provider. plumbing manager called [facility], a follow up appointment was scheduled for , February 05, 2022 at 2:[address] Kruse. plumbing manager gave patient appointment information.
[2022-01-28] MEDS: risperiDONE 1 mg Tablet 3 MG PO (10:52)
== END 2022-01-28 11:01 | disposition home or self-care (01) ==
PROVIDERS: Emergency Provider Family Medicine
DX: F25.9 Schizoaffective disorder, unspecified (principal)
CPT/HCPCS: 81003; 99283

== ENCOUNTER → 2022-02-05 12:32 | Outpatient (BNVA) | payer MEDICAID, SELFPAY | PROVIDERS: Visit Provider Psychiatry & Neurology Psychiatry | DX: F25.9 Schizoaffective disorder, unspecified (principal) | CPT/HCPCS: 99214 ==

== ENCOUNTER 2022-08-13 16:28 | Inpatient (IN) | payer MEDICAID, SELFPAY ==
[2022-08-13 16:38] VITALS: BP 121/79; PULSE 86; RESP 16; TEMP 36.6; O2SAT 98
--- NOTE | 2022-08-13 16:45 | ED.C_ITS ---
HPI - Psych General: Chief Complaint: Psychiatric Symptoms Stated Complaint: si, hearing voices Time Seen by Provider: 08/13/22 16:45 History of Present Illness: Mr. Burton is a 42-year-old gentleman with history of schizoaffective disorder presenting to the emergency department due to hallucinations and suicidal/homicidal ideation. He reports missing his medications for just 1 day and has had marked worsening of symptoms over the past few days. Endorses command hallucinations telling him to kill himself and others. Intensity symptoms is moderate to severe. Course is worsened. Does feel that he needs to be admitted. No other specific changes in health, exacerbating, or alleviating factors identified. Onset (ago): day(s) Duration: getting worse History of same: Yes Context: not taking psychiatric medications Associated psychiatric symptoms: depression, suicidal ideation, homicidal ideation, auditory hallucinations and visual hallucinations Review of Systems General: Reports: 10 or more systems reviewed and unremarkable except in HPI and below PFSH ED PFSH: Medical History Psychiatric care Schizoaffective disorder Social History Smoking and tobacco status: never smoked Alcohol intake: never Physical Exam Const: COMMON NORMALS: alert GENERAL APPEARANCE: cooperative and well developed HENMT: COMMON NORMALS: normocephalic and atraumatic HEAD & SCALP: normocephalic and atraumatic Eye: COMMON NORMALS: conjunctivae normal CONJUNCTIVA: Yes conjunctivae normal SCLERA: sclerae normal Neck/C-Spine: COMMON NORMALS: supple GENERAL: Yes trachea midline Resp: COMMON NORMALS: normal respiratory effort EFFORT & INSPECTION: Yes able to speak in complete sentences Cardio: COMMON NORMALS: regular rate and regular rhythm RATE: regular rate RHYTHM: regular rhythm GI: COMMON NORMALS: Soft to palpation PALPATION: Yes Soft to palpation and No Tenderness to palpation present (GI) PERCUSSION: normal to percussion Extremity: GENERAL: Yes normal exam except as noted and No edema Neuro: COMMON NORMALS: moves all extremities SENSORIUM/ORIENTATION: Yes alert and No Orientation impaired Psych: COMMON NORMALS: mental status grossly normal and Normal thought process present THOUGHT PROCESS: Normal thought process present OTHER: Odd affect, patient at times appears to be interacting with internal stimuli. Course Vital Signs: Vital signs: Vital Signs Temperature 98.0 F 08/18/22 20:21 Pulse Rate 73 08/18/22 20:21 Respiratory Rate 17 08/18/22 20:21 Blood Pressure 117/75 08/18/22 20:21 Pulse Oximetry 98 08/18/22 20:21 Oxygen Delivery Me thod 08/13/22 20:37 MDM - Psych Medical Decision Making 42-year-old gentleman with history of schizoaffective disorder presenting to the emergency department due to psychiatric symptoms that worsened in the context of missing 1 day medications. He is calm and cooperative but certainly appears to be having psychiatric symptoms. Labs without significant hematologic or metabolic abnormality. Toxic ingestions negative. UDS positive for THC. Given clinical history and exam no occasion for imaging at this time. Most likely etiology of patient symptoms is schizoaffective disorder with missed medication. Given severity of symptoms including command hallucinations likely that inpatient management is reasonable. Based on ED evaluation there is no obvious condition that would preclude the patient from inpatient management psychiatric concerns. The results of ED evaluation were discussed with the patient including plan for admission due to requirement for level of care not available if discharged to prevent significant worsening/deterioration. Patient agreeable with plan. Discussed with psychiatry service who was agreeable to admit patient. Medical Records I reviewed the patient's medical records. Lab Data I reviewed the patient's lab results. 08/13/22 17:13 08/13/22 17:13 Laboratory Results WBC 7.3 10^3/uL (4.0-10.0) 08/13/22 17:13 RBC 4.33 10^6/uL (4.1-5.3) 08/13/22 17:13 Hgb 12.6 g/dL (11.7-16.6) 08/13/22 17:13 Hct 38.4 % (42.0-52.0) L 08/13/22 17:13 MCV 88.7 fl (80-94) 08/13/22 17:13 MCH 29.1 pg (28.0-34.0) 08/13/22 17:13 MCHC 32.8 g/dL (30.0-36.0) 08/13/22 17:13 RDW 13.5 % (12.1-15.1) 08/13/22 17:13 Plt Count 262 10^3/cmm (130-400) 08/13/22 17:13 MPV 11.8 fL (7.4-10.4) H 08/13/22 17:13 Neut % (Auto) 71.0 % 08/13/22 17:13 Lymph % (Auto) 19.2 % 08/13/22 17:13 [place] % (Auto) 6.7 % 08/13/22 17:13 Eos % (Auto) 2.2 % 08/13/22 17:13 Baso % (Auto) 0.8 % 08/13/22 17:13 Neut # (Auto) 5.20 10^3/uL (1.8-7.7) 08/13/22 17:13 Lymph # (Auto) 1.4 10^3/uL (0.8-4.8) 08/13/22 17:13 Wilcox # (Auto) 0.5 10^3/uL (0.2-0.9) 08/13/22 17:13 Eos # (Auto) 0.2 10^3/uL (0.0-0.8) 08/13/22 17:13 Baso # (Auto) 0.1 10^3/uL (0.0-0.1) 08/13/22 17:13 Nucleated RBC % (auto) 0 % 08/13/22 17:13 Nucleated RBCs # 0.0 /100WBC 08/13/22 17:13 Sodium 138 mmol/L (136-145) 08/13/22 17:13 Potassium 4.1 mmol/L (3.5-5.1) 08/13/22 17:13 Chloride 101 mmol/L (98-107) 08/13/22 17:13 Carbon Dioxide 27 mmol/L (22-29) 08/13/22 17:13 Anion Gap 14.1 (5-19) 08/13/22 17:13 BUN 6 mg/dL (6-20) 08/13/22 17:13 Creatinine 0.8 mg/dL (0.7-1.2) 08/13/22 17:13 GFR Calculation 106.0 mL/min (90-130) 08/13/22 17:13 Glucose 91 mg/dL (65-115) 08/13/22 17:13 Calculated Osmolality 283 mOsm/kg (285-295) L 08/13/22 17:13 Calcium 9.7 mg/dL (8.5-10.5) 08/13/22 17:13 Total Bilirubin 0.3 mg/dL (0.15-1.2) 08/13/22 17:13 AST 22 U/L (0-40) 08/13/22 17:13 ALT 27 U/L (0-41) 08/13/22 17:13 Alkaline Phosphatase 138 U/L (40-130) H 08/13/22 17:13 Total Protein 7.8 g/dL (6.6-8.7) 08/13/22 17:13 Albumin 4.3 g/dL (3.5-5.2) 08/13/22 17:13 Globulin 3.5 g/dL (1.3-4.6) 08/13/22 17:13 TSH 1.80 uIU/mL (0.27-4.20) 08/13/22 17:13 Salicylates 0.3 mg/dL (3-10) L 08/13/22 17:13 Urine Opiates Screen Negative ng/mL (Negative) 08/13/22 16:50 Acetaminophen < 5.0 ug/mL (10-30) L 08/13/22 17:13 Ur Barbiturates Screen Negative ng/mL (Negative) 08/13/22 16:50 Ur Phencyclidine Scrn Negative ng/mL (Negative) 08/13/22 16:50 Ur Amphetamines Screen Negative ng/mL (Negative) 08/13/22 16:50 U Benzodiazepines Scrn Negative ng/mL (Negative) 08/13/22 16:50 Urine Cocaine Screen Negative ng/mL (Negative) 08/13/22 16:50 U Marijuana (THC) Screen Positive ng/mL (Negative) H 08/13/22 16:50 Ethyl Alcohol 10 mg/dL (0-10) 08/13/22 17:13 Discharge Plan Discharge Patient Disposition: Admitted As Inpatient Admit Provider: Heath Guzman Clinical Impression: Suicidal ideation, Schizoaffective disorder, History of command hallucinations, Homicidal ideation Condition: Stable Coding Level of Care Code ED Classroom Instructional Aide for Vinay Salinas
[2022-08-13 17:25] LABS: Basophils # 0.1 10^3/uL (0.0-0.1); Basophils % 0.8 %; Eosinophils # 0.2 10^3/uL (0.0-0.8); Eosinophils % 2.2 %; Hematocrit 38.4 % (42.0-52.0); Hemoglobin 12.6 g/dL (11.7-16.6); Lymphocytes # 1.4 10^3/uL (0.8-4.8); Lymphocytes % 19.2 %; Mean Corpuscular HGB Conc 32.8 g/dL (30.0-36.0); Mean Corpuscular Hemoglobin 29.1 pg (28.0-34.0); Mean Corpuscular Volume 88.7 fl (80-94); Mean Platelet Volume 11.8 fL (7.4-10.4); Monocytes # 0.5 10^3/uL (0.2-0.9); Monocytes % 6.7 %; Nucleated Red Blood Cells % 0 %; Platelet Count 262 10^3/cmm (130-400); Red Blood Count 4.33 10^6/uL (4.1-5.3); Red Cell Distribution Width 13.5 % (12.1-15.1); White Blood Count 7.3 10^3/uL (4.0-10.0)
[2022-08-13 17:29] VITALS: BP 121/79; PULSE 86; RESP 16; TEMP 36.6; O2SAT 98
[2022-08-13 17:53] LABS: Amphetamines Screen Urine Negative (Negative); Barbiturates Screen Urine Negative (Negative); Benzodiazepines Screen Urine Negative (Negative); Cocaine Screen Urine Negative (Negative); Opiate Screen Urine Negative (Negative); PCP Screen Urine Negative (Negative); THC Screen Urine Positive (Negative)
[2022-08-13 18:02] LABS: Alanine Aminotransferase 27 U/L (0-41); Albumin Level 4.3 g/dL (3.5-5.2); Anion Gap 14.1 (5-19); Aspartate Amino Transferase 22 U/L (0-40); Calcium 9.7 mg/dL (8.5-10.5); Carbon Dioxide 27 mmol/L (22-29); Chloride 101 mmol/L (98-107); Creatinine Clr Calc Pharmacy 151.8251; Globulin 3.5 g/dL (1.3-4.6); Glucose 91 mg/dL (65-115); Potassium 4.1 mmol/L (3.5-5.1); Sodium 138 mmol/L (136-145); Total Bilirubin 0.3 mg/dL (0.15-1.2); Total Protein 7.8 g/dL (6.6-8.7)
[2022-08-13 18:21] LABS: Blood Urea Nitrogen 6 mg/dL (6-20); Osmolality Calculated 283 mOsm/kg (285-295)
[2022-08-13 18:48] LABS: Acetaminophen < 5.0 ug/mL (10-30); Alcohol Level 10 mg/dL (0-10); Alkaline Phosphatase 138 U/L (40-130); Salicylate 0.3 mg/dL (3-10)
[2022-08-13 20:15] VITALS: BP 145/77; PULSE 79; RESP 17; TEMP 36.6; O2SAT 97
[2022-08-13 20:35] VITALS: BP 124/82; PULSE 71; RESP 18; TEMP 36.7; O2SAT 97
[2022-08-13 20:44] VITALS: BP 124/82; PULSE 71; RESP 18; TEMP 36.7; O2SAT 97
[2022-08-13] MEDS: risperiDONE 2 mg Tablet 9 MG PO (21:15)
[2022-08-13] MEDS: trazodone 50 mg Tablet PO (21:17)
[2022-08-13] MEDS: hyDROXYzine 25 mg Capsule 50 MG PO (21:17)
[2022-08-14 06:00] VITALS: BP 114/79; PULSE 95; RESP 18; O2SAT 95
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
[2022-08-14 14:00] VITALS: BP 110/67; PULSE 83; RESP 17; O2SAT 97
[2022-08-14 20:09] VITALS: BP 100/63; PULSE 82; RESP 18; TEMP 36.7; O2SAT 94
[2022-08-14] MEDS: risperiDONE 2 mg Tablet 8 MG PO (21:51)
[2022-08-14] MEDS: risperiDONE 1 mg Tablet PO (21:52)
[2022-08-14] MEDS: hyDROXYzine 25 mg Capsule 50 MG PO (21:52)
[2022-08-14] MEDS: trazodone 50 mg Tablet PO (21:52)
[2022-08-15 06:00] VITALS: RESP 18
--- NOTE | 2022-08-15 08:21 | W.PM.NPUPNS ---
Subjective NPU Subjective: Patient presented today reporting that he is doing okay. He continues to be quite stoic and have limited engagement. He was tolerating the increase in the Risperdal without any clear side effects or concerns. He was mostly worried and focused about his stuff and was contacting his brother so he can figure out what is going to happen after discharge. He denied any significant concerns and we discussed Dr. Duncan coming tomorrow to sweet pickle maker treatment. Mental Status Exam MSE Comments: This is an overweight versus obese white male in hospital scrubs with limited grooming and adequate eye contact. No abnormal movements except for significant psychomotor retardation. Mostly cooperative with exam in mild distress. Speech with decreased rate and volume. Mood described as okay, affect subdued with frequent pauses possibly consistent with thought blocking. Thought process linear. Thought content: Patient denied current suicidal or homicidal ideation but reports that he has been having suicidal thoughts intermittently, there are no delusions noted but paranoia was reported, he also endorsed having auditory and visual hallucinations. Attention and concentration appeared limited and memory appeared somewhat reliable but none were formally tested. He is alert and oriented x3. Insight and judgment appear limited, impulse control is limited. Vitals/I&O/Wt Last Vital Signs Temp 98.1 F 08/14/22 20:09 Pulse 82 08/14/22 20:09 Resp 18 08/15/22 06:00 BP 100/63 08/14/22 20:09 Pulse Ox 94 08/14/22 20:09 O2 Del Method 08/13/22 20:37 Weight last 48 hrs Weight 99.79 kg Data NPU 08/13/22 17:13 08/13/22 17:13 A&P Assessment and plan (1) Schizoaffective disorder: (2) Homicidal ideation: (3) History of command hallucinations: (4) Suicidal ideation: Plan This is a 42-year-old white male with a long history of psychotic illness who presents having been off of his medication for only a couple days but this could be a cognitive distortion reporting that he is experiencing his baseline symptoms when unmedicated. Open to medication adjustments 1.? Continue current medication. Increased Risperdal to 10 mg p.o. nightly. When reviewing records and explore whether some of the augmentation might be beneficial. 2.? Continue every 15 minute checks for safety. 3.? Encourage individual, group and milieu therapies. 4. Get collateral information from outpatient doctor about historical medication exposures. Involuntary Hold Information 96 Hour Hold: 96 Hour Involuntary Admission: No Attestations NPU Medical Necessity Statement*: Inpatient hospitalization is medically necessary and the clinically appropriate intervention at this time. We will monitor medications and make changes as indicated. Likely length of stay 4-6 days. Coding Level of Care Code Acute Eyeglass Frames Inspector for [facility] Diagnoses Schizoaffective disorder F25.9 Homicidal ideation R45.850 History of command hallucinations Z86.59 Suicidal ideation R45.851
[2022-08-15 14:00] VITALS: BP 132/79; PULSE 97; RESP 18; TEMP 36.6; O2SAT 99
[2022-08-15 20:40] VITALS: BP 121/80; PULSE 80; RESP 16; TEMP 36.7; O2SAT 99
[2022-08-15] MEDS: risperiDONE 2 mg Tablet 8 MG PO (20:58)
[2022-08-15] MEDS: hyDROXYzine 25 mg Capsule 50 MG PO (20:59)
[2022-08-15] MEDS: risperiDONE 2 mg Tablet PO (20:59)
[2022-08-16 05:18] VITALS: BP 105/74; PULSE 121; RESP 18; TEMP 36.4; O2SAT 93
[2022-08-16 14:00] VITALS: BP 118/74; PULSE 89; RESP 17; TEMP 36.7; O2SAT 98
--- NOTE | 2022-08-16 19:39 | P.NPUPN_ITS ---
Subjective NPU Subjective: 40-year-old white male with a history of schizoaffective disorder auditory hallucinations suicidal and homicidal ideation with reports of noncompliance to his antipsychotic medication for about 2 days. He continued to report hearing voices but states they have been a little bit better. He reports that the voices are negative and reports that he was uncertain about where he was going when he leaves here. He had endorsed a past history of mood swings and a past history of manic symptoms. The patient reports that he has continued to be distracted by his thoughts but states that the voice has been quieter. He had reported some difficulties with sleep. Mental Status Exam MSE Comments: This is an overweight versus obese white male in hospital scrubs with limited grooming and adequate eye contact. No abnormal movements except for significant psychomotor retardation. Mostly cooperative with exam in mild distress. Speech with decreased rate and volume with some lack of spontaneity. Mood described as okay. His affect remained odd and subdued. Thought process linear but superficial. There was evidence of thought blocking. of thought content: Patient denied current suicidal or homicidal ideation. there are no delusions noted but paranoia was reported, he also endorsed having auditory and visual hallucinations. Attention and concentration appeared limited and memory appeared somewhat reliable but none were formally tested. He is alert and oriented x3. Insight was limited and judgment appear limited, impulse control remains guarded. Vitals/I&O/Wt Last Vital Signs Temp 98.1 F 08/16/22 14:00 Pulse 89 08/16/22 14:00 Resp 17 08/16/22 14:00 BP 118/74 08/16/22 14:00 Pulse Ox 98 08/16/22 14:00 O2 Del Method 08/13/22 20:37 Weight last 48 hrs Weight 101.333 kg Data NPU 08/13/22 17:13 08/13/22 17:13 A&P Assessment and plan (1) Schizoaffective disorder: (2) Homicidal ideation: (3) History of command hallucinations: (4) Suicidal ideation: Plan This is a 42-year-old white male with a long history of psychotic illness who presents having been off of his medication for only a couple days but this could be a cognitive distortion reporting that he is experiencing his baseline symptoms when unmedicated. Open to medication adjustments 1.? Continue current medication. Continue Risperdal at 10 mg p.o. nightly. When reviewing records and explore whether some of the augmentation might be beneficial. 2.? Continue every 15 minute checks for safety. 3.? Encourage individual, group and milieu therapies. 4. Get collateral information from outpatient doctor about historical medication exposures. Involuntary Hold Information 96 Hour Hold: 96 Hour Involuntary Admission: No Attestations NPU Medical Necessity Statement*: Inpatient hospitalization is medically necessary and the clinically appropriate intervention at this time. We will monitor medications and make changes as indicated with likely length of stay 4-6 days. Coding Level of Care Code Established Pt Acute Economic Research Assistant for [facility] Patient Type Established History Problem Focused Exam Problem Focused Medical Decision Making Straight Forward Diagnoses Schizoaffective disorder F25.9 Homicidal ideation R45.850 History of command hallucinations Z86.59 Suicidal ideation R45.851
[2022-08-16] MEDS: risperiDONE 2 mg Tablet 8 MG PO (19:56)
[2022-08-16] MEDS: risperiDONE 2 mg Tablet PO (19:57)
[2022-08-16] MEDS: hyDROXYzine 25 mg Capsule 50 MG PO (19:57)
[2022-08-16 20:33] VITALS: BP 114/70; PULSE 93; RESP 16; TEMP 36.3; O2SAT 97
[2022-08-17 06:00] VITALS: RESP 16
[2022-08-17 14:00] VITALS: BP 131/75; PULSE 98; RESP 16; TEMP 36.3; O2SAT 97
--- NOTE | 2022-08-17 15:58 | W.PM.NPUPNS ---
Subjective NPU Subjective: 40-year-old white male with a history of schizoaffective disorder auditory hallucinations suicidal and homicidal ideation with reports of noncompliance to his antipsychotic medication for about 2 days. He continues to endorse auditory hallucinations of a command nature. He continued to isolate himself in his room. He had reported no desire to consider intramuscular psychotropic medications in place of oral medications as he reported having an aversion to needles. He continued to stay in his room throughout much of the day, not only to eat. Mental Status Exam MSE Comments: This is an overweight versus obese white male in hospital scrubs with limited grooming and adequate eye contact. No abnormal movements except for significant psychomotor retardation. Mostly cooperative with exam in mild distress. Speech with decreased rate and volume with some lack of spontaneity. Mood described as okay. His affect remained odd and subdued. Thought process linear but superficial. There was evidence of thought blocking. Thought content: Patient denied current suicidal or homicidal ideation. there are no delusions noted but paranoia was reported, he also endorsed having auditory hallucinations and no visual hallucinations. Attention and concentration appeared limited and memory appeared somewhat reliable but none were formally tested. He is alert and oriented x3. Insight was limited and judgment appear limited, impulse control remains guarded. Vitals/I&O/Wt Last Vital Signs Temp 98.0 F 08/17/22 20:13 Pulse 86 08/17/22 20:13 Resp 16 08/17/22 20:13 BP 112/70 08/17/22 20:13 Pulse Ox 97 08/17/22 20:13 O2 Del Method 08/13/22 20:37 Weight last 48 hrs Weight 101.333 kg Data NPU 08/13/22 17:13 08/13/22 17:13 A&P Assessment and plan (1) Schizoaffective disorder: (2) Homicidal ideation: (3) History of command hallucinations: (4) Suicidal ideation: Plan This is a 42-year-old white male with a long history of psychotic illness who presents having been off of his medication for only a couple days but this could be a cognitive distortion reporting that he is experiencing his baseline symptoms when unmedicated. Open to medication adjustments 1.? Continue current medication. Continue Risperdal at 10 mg p.o. nightly. When reviewing records and explore whether some of the augmentation might be beneficial. 2.? Continue every 15 minute checks for safety. 3.? Encourage individual, group and milieu therapies. 4. Get collateral information from outpatient doctor about historical medication exposures. Involuntary Hold Information 96 Hour Hold: 96 Hour Involuntary Admission: No Attestations NPU Medical Necessity Statement*: Inpatient hospitalization is medically necessary and the clinically appropriate intervention at this time. We will monitor medications and make changes as indicated with likely length of stay 4-6 days. Coding Level of Care Code Established Pt Acute Highway Construction Inspector for [facility] Fwd Patient Type Established History Problem Focused Exam Problem Focused Medical Decision Making Straight Forward Diagnoses Schizoaffective disorder F25.9 Homicidal ideation R45.850 History of command hallucinations Z86.59 Suicidal ideation R45.851
[2022-08-17 20:13] VITALS: BP 112/70; PULSE 86; RESP 16; TEMP 36.7; O2SAT 97
[2022-08-17] MEDS: risperiDONE 2 mg Tablet PO (20:16)
[2022-08-17] MEDS: hyDROXYzine 25 mg Capsule 50 MG PO (20:17)
[2022-08-17] MEDS: risperiDONE 2 mg Tablet 8 MG PO (20:17)
[2022-08-18 06:00] VITALS: RESP 18
[2022-08-18 14:00] VITALS: BP 119/75; PULSE 107; RESP 20; TEMP 36.6; O2SAT 97
--- NOTE | 2022-08-18 16:28 | P.NPUPN_ITS ---
Subjective NPU Subjective: 40-year-old white male with a history of schizoaffective disorder auditory hallucinations suicidal and homicidal ideation with reports of noncompliance to his antipsychotic medication for about 2 days. The patient had reported that despite him isolating himself on the milieu he had been feeling better with the increase in risperidone. He had reported that he had previously been hospitalized at the [facility] in [place] for about a year and a half and this medication had been the best medication for him. The patient reported no mood symptoms. He had reported engaging in appropriate self-care today on the milieu. He reported no side effects from his medication. He had reported that he would like to return to live with his brother upon leaving the neuropsychiatric unit here. He reported that the auditory hallucinations were quieter and less difficult to elucidate. Mental Status Exam MSE Comments: This is an overweight versus obese white male in hospital scrubs with limited grooming and adequate eye contact. No abnormal movements except for significant psychomotor retardation. He was cooperative with exam in no acute distress. Speech with normal rate and volume with improved spontaneity of speech. Mood described as better. His affect remained blunted. Thought proc ess linear and more goal-directed. There was no evidence of thought blocking. Thought content: Patient denied current suicidal or homicidal ideation. there are no delusions noted but paranoia was reported, he also endorsed having auditory hallucinations and no visual hallucinations. Attention and concentration appeared limited and memory appeared somewhat reliable but none were formally tested. He is alert and oriented x3. Insight was limited and judgment appear limited, impulse control remains guarded. Vitals/I&O/Wt Last Vital Signs Temp 98 F 08/18/22 14:00 Pulse 107 H 08/18/22 14:00 Resp 20 H 08/18/22 14:00 BP 119/75 08/18/22 14:00 Pulse Ox 97 08/18/22 14:00 O2 Del Method 08/13/22 20:37 Data NPU 08/13/22 17:13 08/13/22 17:13 A&P Assessment and plan (1) Schizoaffective disorder: (2) Homicidal ideation: (3) History of command hallucinations: (4) Suicidal ideation: Plan This is a 42-year-old white male with a long history of psychotic illness who presents having been off of his medication for only a couple days but this could be a cognitive distortion reporting that he is experiencing his baseline symptoms when unmedicated. Open to medication adjustments 1.? Continue current medication. Continue Risperdal at 10 mg p.o. nightly. He appears to be showing some improvement at this time and we will begin confirming disposition related issues and living situation. He appears likely to return to live with his brother. 2.? Continue every 15 minute checks for safety. 3.? Encourage individual, group and milieu therapies. 4. Get collateral information from outpatient doctor about historical me dication exposures. Involuntary Hold Information 2 96 Hour Hold: 96 Hour Involuntary Admission: No Attestations NPU Medical Necessity Statement*: Inpatient hospitalization is medically necessary and the clinically appropriate intervention at this time. We will monitor medications and make changes as indicated with likely length of stay 4-6 days. Coding Level of Care Code Established Pt Acute Patternmaker [employer] for Eliasg Fwd Patient Type Established History Problem Focused Exam Problem Focused Medical Decision Making Straight Forward Diagnoses Schizoaffective disorder F25.9 Homicidal ideation R45.850 History of command hallucinations Z86.59 Suicidal ideation R45.851
[2022-08-18] MEDS: risperiDONE 2 mg Tablet PO (20:08)
[2022-08-18] MEDS: hyDROXYzine 25 mg Capsule 50 MG PO (20:09)
[2022-08-18] MEDS: risperiDONE 2 mg Tablet 8 MG PO (20:09)
[2022-08-18 20:21] VITALS: BP 117/75; PULSE 73; RESP 17; TEMP 36.7; O2SAT 98
[2022-08-19 06:00] VITALS: RESP 16
[2022-08-19 14:00] VITALS: BP 128/73; PULSE 93; RESP 18; TEMP 36.6; O2SAT 97
--- NOTE | 2022-08-19 18:23 | P.NPUPN_ITS ---
Subjective NPU Subjective: 40-year-old white male with a history of schizoaffective disorder auditory hallucinations suicidal and homicidal ideation with reports of noncompliance to his antipsychotic medication for about 2 days prior to admission. Patient had reported improved mood and states that the voices had been less intense and less distracting. He continued to isolate himself on the milieu. He had engaged in appropriate self-care today. He reported adequate sleep. He stated that he was feeling almost back to his old self again. He reported no desire to consider intramuscular medication to help with maintaining compliance. He was willing to return to live with his brother. Staff notes the patient was pleasant and redirectable. He had again endorsed an extensive history of extended stays at [facility] in the past for his schizophrenia. Mental Status Exam MSE Comments: This is an overweight versus obese white male in hospital scrubs with limited grooming and adequate eye contact. No abnormal movements except for significant psychomotor retardation. He was cooperative with exam in no acute distress. Speech with normal rate and volume with improved spontaneity of speech. Mood described as better. His affect remained blunted. His thought process was linear and more goal-directed. There was no evidence of thought blocking. Thought content: Patient denied current suicidal or homicidal ideation. there are no delusions noted but paranoia was reported, he continued to endorse decreasing intensity and prevalence of auditory hallucinations and no visual hallucinations. Attention and concentration appeared limited and memory appeared somewhat reliable but none were formally tested. He is alert and oriented x3. Insight was limited and judgment appear limited, impulse control r emains guarded. Vitals/I&O/Wt Last Vital Signs Temp 97.9 F 08/19/22 14:00 Pulse 93 08/19/22 14:00 Resp 18 08/19/22 14:00 BP 128/73 08/19/22 14:00 Pulse Ox 97 08/19/22 14:00 O2 Del Method 08/19/22 14:00 Data NPU 08/13/22 17:13 08/13/22 17:13 A&P Assessment and plan (1) Schizoaffective disorder: (2) Homicidal ideation: (3) History of command hallucinations: (4) Suicidal ideation: Plan This is a 42-year-old white male with a long history of psychotic illness who presents having been off of his medication for only a couple days but this could be a cognitive distortion reporting that he is experiencing his baseline symptoms when unmedicated. Open to medication adjustments 1.? Continue current medication. Continue Risperdal at 10 mg p.o. nightly. He appears to be showing some improvement at this time and we will begin confirming disposition related issues and living situation. He appears likely to return to live with his brother. 2.? Continue every 15 minute checks for safety. 3.? Encourage individual, group and milieu therapies. 4. Patient showing improvement, plan for d/c tommorow with follow up at [facility]. Involuntary Hold Information 96 Hour Hold: 96 Hour Involuntary Admission: No Attestations NPU Medical Necessity Statement*: Inpatient hospitalization is medically necessary and the clinically appropriate intervention at this time. We will monitor medications and make changes as indicated with likely length of stay greater than1-2 days. Coding Level of Care Code Established Pt Acute Advanced Quality Engineer for Vinay Salinas Patient Type Established History Problem Focused Exam Problem Focused Medical Decision Making Straight Forward Diagnoses Schizoaffective disorder F25.9 Homicidal ideation R45.850 History of command hallucinations Z86.59 Suicidal ideation R45.851
[2022-08-19] MEDS: risperiDONE 2 mg Tablet 8 MG PO (20:09)
[2022-08-19] MEDS: hyDROXYzine 25 mg Capsule 50 MG PO (20:09)
[2022-08-19] MEDS: risperiDONE 2 mg Tablet PO (20:10)
[2022-08-19 20:23] VITALS: BP 124/70; PULSE 100; RESP 16; O2SAT 97
[2022-08-20 06:00] VITALS: RESP 18
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
[2022-08-20 11:17] VITALS: BP 124/70; PULSE 100; RESP 18; TEMP 36.6; O2SAT 97
== END 2022-08-20 14:13 | disposition home or self-care (01) | DRG 885 ==
LOC: ER 18:59 → NP 20:33
PROVIDERS: Admitting Provider Psychiatry & Neurology Psychiatry; Emergency Provider Emergency Medicine; Visit Provider Psychiatry & Neurology Psychiatry
DX: F25.9 Schizoaffective disorder, unspecified (principal); R45.851 Suicidal ideations; R45.850 Homicidal ideations; Z91.14 Patient's other noncompliance with medication regimen
CPT/HCPCS: 80053; 80306; 80307; 84443; 85025; 97150; 97165

== ENCOUNTER 2023-04-21 09:09 | Outpatient (CLI) | payer MEDICAID, SELFPAY ==
[2023-04-21 10:17] LABS: Estmated Average Glucose 97
[2023-04-21 10:21] LABS: Cholesterol 152 mg/dL (0-200); HDL Cholesterol 46 mg/dL (60-100); LDL Cholesterol Calculated 81 mg/dL (50-129); LDL HDL Ratio 1.76 RATIO (0.00-3.22); Triglycerides 127 mg/dL (0-150)
== END 2023-04-21 09:10 | disposition home or self-care (01) ==
LOC: LAB 09:14
PROVIDERS: Visit Provider Nurse Practitioner Psychiatric/Mental Health
DX: Z79.899 Other long term (current) drug therapy (principal)
CPT/HCPCS: 36415; 80061; 83036

== ENCOUNTER 2023-08-18 11:45 | Emergency (ER) | payer MEDICAID, SELFPAY ==
[2023-08-18 11:46] VITALS: BMI 27.6
[2023-08-18 11:50] VITALS: BP 125/84; PULSE 87; RESP 15; TEMP 36.7; O2SAT 97
--- NOTE | 2023-08-18 11:59 | ED_ITS ---
HPI - General Adult General: Chief complaint: Airway/Esophagus Foreign Body Stated complaint: Airway obst. Food Bolus Time Seen by Provider: 08/18/23 11:46 Source: patient and EMS Mode of arrival: EMS Limitations: no limitations History of Present Illness: 43-year-old male states he is eaten [employer] roughly an hour ago and had 1 lodged in his esophagus for like he could not swallow he states on the ambulance ride over here he felt like it is past and he feels much improved. He states he had this happen once before and it resolved on its own as well. He is having no shortness of breath no cough Associated symptoms: Deny chest pain, dyspnea, headache(s), nausea, rash or vomiting Review of Systems Const: Denies: fever(s), chills, body aches or change in appetite Eyes: Denies: blurry vision or eye discomfort ENMT: Denies: throat pain or dental pain Card: Denies: chest pain Resp: Denies: dyspnea GI: Denies: abdominal pain, nausea, vomiting or diarrhea : Denies: dysuria Musc: Denies: neck pain or back pain Skin/Breast: Denies: rash Neuro: Denies: headache(s) PFSH ED PFSH: Medical History Hyperlipidemia History of command hallucinations Psychiatric care Schizoaffective disorder Family History (Updated 12/03/22 @ 15:19 by Ciro Blankenship MD) Father CAD (coronary artery disease) Stroke Mother No problems noted. Social History Smoking and tobacco/nicotine status: former use of tobacco/nicotine Quit status (tobacco/nicotine): quit date established Alcohol intake: former Year of sobriety/quit date alcohol: 2009 Substance/Drug Use: former Lives independently: Yes Household members: family and other Current occupational status: unemployed Physical Exam Const: COMMON NORMALS: no acute distress, patient oriented x3 and healthy appearing HENMT: COMMON NORMALS: normocephalic and atraumatic HEAD & SCALP: normocephalic and atraumatic THROAT: posterior oropharynx normal Eye: COMMON NORMALS: Equal, round and reactive pupils present and EOMs intact bilaterally PUPIL: Yes Equal, round and reactive pupils present Neck/C-Spine: COMMON NORMALS: full ROM and supple Chest: COMMONS NORMALS: normal inspection of the chest Resp: COMMON NORMALS: normal respiratory effort Cardio: COMMON NORMALS: regular rate, regular rhythm and No murmurs present (Cardio) RATE: regular rate RHYTHM: regular rhythm GI: INSPECTION: Yes normal to inspection Extremity: COMMON NORMALS: normal to inspection and full ROM Neuro: COMMON NORMALS: patient oriented x3, moves all extremities and no focal motor deficits Psych: COMMON NORMALS: mental status grossly normal, Normal thought process present and cooperative THOUGHT PROCESS: Normal thought process present Skin: COMMON NORMALS: no rashes or lesions noted and no wounds GENERAL SKIN EXAM: no rashes or lesions noted Course Vital Signs: Vital signs: Vital Signs Temperature 98.0 F 08/18/23 11:50 Pulse Rate 87 08/18/23 11:50 Respiratory Rate 15 08/18/23 11:50 Blood Pressure 125/84 08/18/23 11:50 Pulse Oximetry 97 08/18/23 11:50 Oxygen Delivery Me thod Room Air 08/18/23 11:50 MDM - General Adult Medical Decision Making Patient presents for esophageal food impaction that resolved in route he is able to tolerate liquids and solids and feels much improved he is stable for discharge Medical Records I reviewed the patient's medical records. No radiology studies performed this visit Discharge Plan Discharge Patient Disposition: Home Clinical Impression: Food impaction of esophagus Condition: Stable Prescriptions: No Action benztropine 1 mg tablet 1 mg PO .q hs Qty: 30 3RF Rx Instructions: Take one tablet daily at bedtime risperidone 2 mg tablet 4 mg PO .q hs Qty: 60 3RF Rx Instructions: Take two tablets daily at bedtime (with 6 mg dose) risperidone 3 mg tablet 6 mg PO .q hs Qty: 60 3RF Rx Instructions: TAke two tablets at bedtime (with the 4 mg dose) hydroxyzine pamoate 25 mg capsule 25 mg PO BEDTIME Qty: 30 3RF Rx Instructions: Take one capsule daily at bedtime, if needed for insomnia Discharge Orders: Discharge ED (Routine); Ordered 08/18/23 Ordered By: Lexy Ascencio Discharge Diet: Advance as tolerated Discharge Activity: Resume usual activity Patient Instructions: Esophageal Foreign Body (ED) Coding Level of Care Code ED [employer] Work[employer] for Vinay Salinas
[2023-08-18 12:04] VITALS: BP 125/84; PULSE 87; RESP 15; TEMP 36.7; O2SAT 97
== END 2023-08-18 12:04 | disposition home or self-care (01) ==
PROVIDERS: Emergency Provider Emergency Medicine
DX: T18.128A Food in esophagus causing other injury, initial encounter (principal); W44.F3XA Food entering into or through a natural orifice, initial encounter; E78.5 Hyperlipidemia, unspecified; Z87.891 Personal history of nicotine dependence
CPT/HCPCS: 99281

== ENCOUNTER → 2024-04-18 09:24 | Outpatient (BNVA) | payer OTHER, SELFPAY | PROVIDERS: Visit Provider Nurse Practitioner Psychiatric/Mental Health | DX: Z79.899 Other long term (current) drug therapy (principal) | CPT/HCPCS: 80053; 80061; 83036 ==

== ENCOUNTER → 2025-04-19 11:38 | Outpatient (BNVA) | payer SELFPAY | PROVIDERS: Visit Provider Nurse Practitioner Psychiatric/Mental Health | DX: Z79.899 Other long term (current) drug therapy (principal) | CPT/HCPCS: 80053; 80061; 83036 ==